=== PATIENT | male | born 1960 | race Caucasian/White ===

== ENCOUNTER 2017-03-31 06:59 | Inpatient (IN) ==
[2017-03-29 13:18] LABS: Appearance,Urine CLEAR; Bilirubin,Urine NEG (NEG); Color,Urine YELLOW; Glucose,Urine (UA) NEGATIVE (NEG); Leukocyte Esterase,Urine NEG /uL (NEG); Nitrate,Urine NEG (NEG); Protein,Urine NEG (NEG); Specific Gravity,Urine 1.021 (1.000-1.035); Urine Blood NEG mg/dL (<0.03); Urobilinogen,Urine NEG (NEG)
[2017-03-29 14:13] LABS: Basophils # (Auto) 0 K/mcL (0.0-0.3); Basophils % (Auto) 0.6 % (0.0-2.0); Eosinophils # (Auto) 0.2 K/mcL (0.0-0.7); Eosinophils % (Auto) 2.8 % (0.0-7.0); Granulocytes % (Auto) 51.6 % (38.0-78.0); Lymphocytes # (Auto) 2.8 K/mcL (1.5-4.8); Lymphocytes % (Auto) 34.8 % (15.5-49.0); Mean Cell Volume 93.4 fL (80.0-100.0); Mean Corpuscular HGB Conc 33.5 g/dL (31.0-36.0); Mean Corpuscular Hemoglobin 31.3 pg (26.0-34.0); Monocytes # (Auto) 0.8 K/mcL (0.1-0.9); Monocytes % (Auto) 10.2 % (1.0-12.0); Platelet Count 224 K/mcL (140-440); Red Cell Distribution Width 14.9 % (11.5-14.5)
[2017-03-29 14:28] LABS: Blood Urea Nitrogen 12 mg/dl (6-20)
[~2017-03-31 06:59] MED LIST: CELECOXIB 200 MG CAPSULE PO SCH; KETOROLAC 30 MG, ROPIVACAINE HCL/PF 49.5 ML, EPINEPHrine 0.5 MG, 0.9 % SODIUM CHLORIDE ... IJ SCH; PREGABALIN 75 MG CAPSULE PO SCH; ceFAZolin 1 GM VIAL IV SCH; oxyCODONE 10 MG TAB.ER.12H PO SCH
[2017-03-31] MEDS ORDERED: KETAMINE 100 MG/ML ML IV ONE (09:40)
[2017-03-31] MEDS ORDERED: TRANEXAMIC ACID 1,000 MG/10 ML VIAL IV ONE ×2 (09:40→11:46)
[2017-03-31] MEDS ORDERED: LIDOCAINE HCL/PF 100 MG/5 ML SYRINGE IV ONE (09:40)
[2017-03-31] MEDS ORDERED: MIDAZOLAM 5 MG/5 ML VIAL IV ONE (09:40)
[2017-03-31] MEDS ORDERED: PROPOFOL 200 MG/20 ML VIAL IV ONE (09:40)
[2017-03-31] MEDS ORDERED: ONDANSETRON 4 MG/2 ML VIAL IV ONE (09:40)
[2017-03-31] MEDS ORDERED: PHENYLEPHRINE 10 MG/ML VIAL IV ONE (09:40)
[2017-03-31] MEDS ORDERED: EPINEPHrine 1 MG/ML ML IV ONE (09:40)
[2017-03-31] MEDS ORDERED: ROPIVACAINE HCL/PF 30 ML VIAL IJ ONE (09:40)
[2017-03-31] MEDS ORDERED: GLYCOPYRROLATE 0.2 MG/ML VIAL IV ONE (09:40)
[2017-03-31] MEDS ORDERED: METHOCARBAMOL 1,000 MG/10 ML VIAL IV PRN (10:41)
[2017-03-31] MEDS ORDERED: IPRATROPIUM/ALBUTEROL 3 ML AMPUL.NEB NEB PRN (10:41)
[2017-03-31] MEDS ORDERED: MEPERIDINE 25 MG/ML SYRINGE IV PRN (10:41)
[2017-03-31] MEDS ORDERED: fentaNYL 100 MCG/2 ML VIAL IV PRN (10:41)
[2017-03-31] MEDS ORDERED: ONDANSETRON 4 MG/2 ML VIAL IV PRN ×2 (10:41→11:46)
[2017-03-31] MEDS ORDERED: ePHEDrine 50 MG/ML AMPUL IV PRN (10:41)
[2017-03-31] MEDS ORDERED: LACTATED RINGERS 1,000 ML IV SCH (10:45)
[2017-03-31] MEDS ORDERED: TOBRAMYCIN SULFATE 1.2 GM VIAL TOPICAL ONE (10:58)
[2017-03-31] MEDS: VANCOMYCIN 1 GM VIAL TOPICAL SCH (10:59)
--- NOTE | 2017-03-31 11:45 | Brief Operative Note ---
Date of procedure: 03/31/17 Pre-op diagnosis: Right post infection arthritis Post-op diagnosis: same Procedure: Right total knee arthroplasty Grafts/Implants: Yes (Pilar 6 PS femur, 6 tibia, 11 TS insert, 36 patella) Anesthesia: spinal, GLMA Findings: no gross purulence, severe arthritis Complications: none Surgeon: Yoel Khan Head Bander And Liner Operator: Edil Hoffmann Estimated blood loss (cc): 30 Specimens Removed/Pathology: none sent Condition: stable Disposition: PACU
[2017-03-31] MEDS ORDERED: HYDROcodone/APAP 10/325MG TABLET PO PRN (11:46)
[2017-03-31] MEDS ORDERED: BISACODYL 10 MG SUPP.RECT PR PRN (11:46)
[2017-03-31] MEDS ORDERED: FLEETS ADULT ENEMA PR PRN (11:46)
[2017-03-31] MEDS ORDERED: POLYETHYLENE GLYCOL 3350 17 GM PACKET PO PRN (11:46)
[2017-03-31] MEDS ORDERED: MAGNESIUM HYDROXIDE 30 ML ORAL.SUSP PO PRN (11:46)
[2017-03-31] MEDS ORDERED: BENZOCAINE/MENTHOL 1 LOZENGE PO PRN (11:46)
--- NOTE | 2017-03-31 12:37 | XRay Report ---
CLINICAL INFORMATION: Status post right knee replacement TECHNIQUE: AP, lateral, sunrise views of the right knee COMPARISON: None. FINDINGS: Status post right total knee arthroplasty. Alignment is anatomic. There are multiple focal densities consistent with antibiotic beads within the joint space. There is soft tissue and intra-articular postsurgical gas IMPRESSION: Status post right total knee arthroplasty Interpreted and Authenticated by: Jamison Herrera 03/31/17
--- NOTE | 2017-03-31 12:54 | Operative Note ---
DATE OF OPERATION: 03/31/2017 PREOPERATIVE DIAGNOSIS: Right knee post-infectious arthritis. POSTOPERATIVE DIAGNOSIS: Right knee post-infectious arthritis. PROCEDURE PERFORMED: Right total knee arthroplasty using the Pilar triathlon size 6 posterior stabilized femoral component, size 6 tibial baseplate, 11 mm total stabilized X3 tibial insert with a 36 mm patellar button. SURGEON: Yoel Khan MD. SUBCONTRACTS MANAGER: Caleb Hoffmann PA-C. ANESTHESIA: Spinal plus general. DRAINS: None. SPECIMENS: Culture and sensitivity x2. BLOOD LOSS: Less than 30 mL COMPLICATIONS: None. POSTOPERATIVE CONDITION: Stable. INDICATIONS FOR SURGERY: This is a 57-year-old male who approximately 3 months ago got a septic arthritis. This was washed out and treated by Dr. Carlson. He underwent 6 weeks of IV antibiotics and then went for 6 weeks off antibiotics with no evidence of infection. Radiographs showed severe arthrosis. FINDINGS AT SURGERY: Severe post-infectious arthritis, no gross purulence. Post implantation showed satisfactory limb alignment and stability of patellar tracking. PROCEDURE IN DETAIL: The patient had been seen preoperatively. Informed consent had been obtained after discussion of risks and benefits of surgery. Risks including, but not limited to, bleeding, possibly requiring transfusion; infection, possibly requiring implant removal and prolonged IV antibiotics; injury to nerves, blood vessels, and other surrounding structures; anesthetic risks; incomplete or no pain relief, possibility of needing further surgery; and DVT and pulmonary embolus risks. He understood these risks and wished to proceed. Correct operative site was marked and then patient received spinal anesthesia. He was then taken to the operating room and LMA general given. The right lower extremity was then carefully prepped and draped in normal sterile fashion and a time-out was performed verifying patient name, operative site, and plan. Esmarch was used to exsanguinate the extremity and tourniquet was inflated to 300 mmHg. Midline incision was made with a scalpel through skin and subcutaneous tissue deviating medially the distal end to incorporate his previous scar. This was taken down onto the extensor mechanism and then IrriSept was irrigated. We then made a medial parapatellar arthrotomy and joint effusion was then cultured x2. We then continued exposing subperiosteally the anterior medial tibia and then a drill hole was made in the distal femur. A 5 degree valgus cut block was pinned into place with an 8 mm resection. We went ahead and made our distal femoral cut and then marked our Victoria's line epicondylar access. It did take 6 degrees of external rotation to match his anatomy. We sized him to a size 6. This was pinned into place. We made our anterior cut, which was flush with the anterior cortex so we went ahead and made our posterior and chamfer cuts. We then subluxed the tibia forward and what remained of the menisci was removed. A drill hole was made in the proximal tibia, an IM una passed down. We went ahead and stylused 2 off the medial side and checked the lateral side as well. We pinned this block into place and made our tibial cut. The tibia was sized to a size 6, which was externally rotated as much as bone coverage would allow and pinned into place. Boss reamer and keel punch were used to prepare and then a keeled tibial trial placed. The femur was elevated and posterior osteophytes were removed with a curved osteotome. Then femoral trial was placed. The peg holes were drilled for the femur and then 11 mm insert was placed. The PCL did not appear to be competent and seemed to be too much posterior drawer. We did then decide to switch over to a posterior stabilized construct. We pinned the box cutting jig in place flush with the lateral cortex and then cut our box and then placed the PS femoral trial and then an 11 PS insert. Patella was prepared freehand and medialized maximally and sized to a 36, limited lateral facetectomy was performed. The knee had full range of motion. The patella did seem to want to track slightly lateral. We still felt that there was some rotational instability. We decided to go ahead and cement implants in at this time. We removed trial implants. We irrigated IrriSept. After waiting a minute, we pulse lavaged copiously with saline. Antibiotic cement was mixed. After thorough pulse lavage we used CO2 gun to clean the cut bone surfaces. We cemented the tibia followed by the femur. Excess cement was removed and an 11 trial insert placed and the knee was taken into full extension and the patellar button was cemented. While cement hardened, we filled the joint with IrriSept and then injected our pain cocktail into the pericapsular and subcutaneous tissues. After this, we then copiously pulse lavaged with saline. We did go ahead and trial a total stabilized and we felt this gave better stability, so we went ahead and opened an 11 total stabilized insert. We also during this time started mixing Stimulus antibiotic absorbable beads for infection prophylaxis. We did impact the insert. However, there was a small gap posteriorly and so our concern was that the poly was not fully seated. We went ahead and removed this and there was indeed some soft tissue interposed posteriorly, so this was excised and a new poly insert was impacted. At this time, it seated fully and so we then placed our antibiotic beads throughout the joint. The knee was taken to about 45 degrees of flexion. A #2 FiberWire interrupted [id number] was used around the superior quadrant of the patella. Inferiorly we used #1 Vicryl [id number]. The quad tendon and patellar tendon was closed with running #1 Vicryl. Final IrriSept irrigation done and then after a minute pulse lavage, and then 2-0 Monocryl for subcutaneous and adrianne for skin. Xeroform and sterile dressing were applied and the patient was then awakened, extubated, and transferred to recovery in stable condition. FORTUNATO:selina Job ID: [id number] Doc ID: [id number] Yoel Khan MD
[2017-03-31] MEDS: KETOROLAC 30 MG/ML VIAL IV SCH ×3 (13:04→23:48)
[2017-03-31] MEDS: 0.9 % SODIUM CHLORIDE 10 ML SYRINGE IV SCH ×2 (15:58→20:26)
[2017-03-31] MEDS: morphine 30 MG TAB.SR.12H PO SCH ×2 (16:01→21:59)
[2017-03-31] MEDS: ceFAZolin 1 GM VIAL IV SCH (18:03)
[2017-03-31] MEDS: 0.9 % SODIUM CHLORIDE 1,000 ML IV SCH ×2 (18:19→23:08)
[2017-03-31] MEDS: DOCUSATE SODIUM 100 MG CAPSULE PO SCH (20:26)
[2017-03-31] MEDS: ASPIRIN 325 MG ENTERIC COATED TABLET PO SCH (20:26)
[2017-03-31] MEDS ORDERED: SENNOSIDES 1 TABLET PO SCH (21:00)
[2017-04-01] MEDS: ceFAZolin 1 GM VIAL IV SCH (00:56)
[2017-04-01] MEDS: 0.9 % SODIUM CHLORIDE 10 ML SYRINGE IV SCH (05:30)
[2017-04-01] MEDS: KETOROLAC 30 MG/ML VIAL IV SCH (05:30)
[2017-04-01] MEDS: 0.9 % SODIUM CHLORIDE 1,000 ML IV SCH (07:40)
[2017-04-01] MEDS: DOCUSATE SODIUM 100 MG CAPSULE PO SCH (08:20)
[2017-04-01] MEDS: ASPIRIN 325 MG ENTERIC COATED TABLET PO SCH (08:47)
[2017-04-01] MEDS: morphine 30 MG TAB.SR.12H PO SCH (08:48)
[2017-04-01] MEDS: VANCOMYCIN 1 GM VIAL TOPICAL SCH (10:04)
== END 2017-04-01 10:22 | disposition home or self-care (01) | DRG 470 ==
LOC: MEDSUR 06:59
PROVIDERS: ADMIT Orthopaedic Surgery; ATTEND Orthopaedic Surgery